=== PATIENT | male | born 1960 ===

== ENCOUNTER 2024-04-02 07:05 | Day surgery (SDC) | payer OTHER ==
[~2024-04-02] VITALS: Ht 165.1 cm; Wt 77.1 kg
[2024-04-02] MEDS ORDERED: MIDAZOLAM HCL 5 MG/5 ML VIAL ONE (07:26)
[2024-04-02] MEDS ORDERED: MEPERIDINE 100 MG INJ. 100 MG/ML VIAL ONE (07:26)
[2024-04-02 09:39] VITALS: O2SAT 99
[2024-04-02 17:59] VITALS: BP_SYST 146; PULSE 73; RESP 18
== END 2024-04-02 11:03 | disposition home or self-care (01) ==
LOC: SMU 07:05 → SDS 07:05
PROVIDERS: ATTEND Student in an Organized Health Care Education/Training Program
DX: Z12.11 Encounter for screening for malignant neoplasm of colon (principal); D12.0 Benign neoplasm of cecum; D12.3 Benign neoplasm of transverse colon; K64.4 Residual hemorrhoidal skin tags; K64.8 Other hemorrhoids; I10 Essential (primary) hypertension; F17.210 Nicotine dependence, cigarettes, uncomplicated; Z79.899 Other long term (current) drug therapy
CPT/HCPCS: 45380; 45385; 88305; J2175; J2250